=== PATIENT | male | born 1985 | race Caucasian/White ===

== ENCOUNTER 2025-04-24 17:05 | Emergency (ER) | payer OTHER ==
--- OUTSIDE RECORDS SUMMARY | 2025-04-24 17:10 | XMS REPORT | Continuity of Care Document ---
Author Name Unknown Address [address] [facility] [address] [place] [address] [facility] Address [address] [place] [address] Care Team Providers Care Personnel Generalist Manager Name Role Phone Michelle Hicks MD Primary Care Physici an Dunia Field Attending Clinician [phone] Dunia Field Attending Clinician [phone] Lab, Ang - Db Attending Clinician Unavailable DUNIA POTTS Attending Clinician Unavailable Michelle Hicks MD Attending Clinician MICHELLE HICKS Attending Clinician [place] vailable Doctor Unassigned, [place] Attending Clinician U navailable Payers Payer Name Policy Type Policy Number Effective Date Expirati on Date Source Problems Condition Name Condition Details Condition Category Status Onset Date Resolution Date Last Treatment Date Treating Clinician Comments Source Prediabete s Prediabete s Disease Active 01-01 00:00: 00 [facility] Allergies, Adverse Reactions, Alerts Allergy Name Allergy Type Status Severity Reaction(s) Onset Date Inactive Date Treating Clinician Comments Source NO KNOWN ALLERGIE S Drug Class Active [facility] Social History Social Habit Start Date Stop Date Quantity Comments Source [facility] intake 2024-01-02 00:00:00 2024-01-02 00:00:00 Ex-drinker (finding) [facility] Alcohol intake 2023-12-29 00:00:00 2023-12-29 00:00:00 Ex-drinker (finding) [facility] Tobacco use and exposure 2023-05-23 00:00:00 2023-05-23 00:00:00 Smokeless tobacco non-user [facility] History of Social function 2023-05-23 00:00:00 2023-05-23 00:00:00 [facility] Sex assigned at 1985 00:00:00 1985 00:00:00 [facility] Smoking Status Start Date Stop Date Source Tobacco smoking consumption unknown [facility] Never smoked tobacco [facility] Medications Ordered Medication Name Filled Medication Name Start Date Stop Date Current Medication? Ordering Clinician Indication Dosage Frequency Signature (SIG) Comments Components Source PARoxetine 20 mg tablet 2023-08 00:00: 00 Yes [id number] 20mg TAKE 1 TABLET BY MOUTH EVERY DAY IN THE MORNING [facility] PARoxetine (PAXIL) 20 mg tablet 8-20 00:00: 00 06-28 00:00 :00 No [id number] 20mg Take 1 tablet by mouth in the morning. [facility] PARoxetine (PAXIL) 20 mg tablet 5-03 00:00: 00 04-15 00:00 :00 No [id number] 20mg Take 1 tablet by mouth in the morning. [facility] PARoxetine (PAXIL) 20 mg tablet 3-20 00:00: 00 12-28 00:00 :00 No [id number] 20mg Take 1 tablet by mouth in the morning. [facility] PARoxetine (PAXIL) 20 mg tablet 2022-08 2-29 00:00: 00 11-14 00:00 :00 No [id number] 20mg Take 1 tablet by mouth in the morning. [facility] PARoxetine (PAXIL) 10 mg tablet - 08:24: 41 05-23 00:00 :00 No 10mg Take 1 tablet by mouth in the morning. [facility] PARoxetine (PAXIL) 10 mg tablet 9-26 00:00: 00 08-25 00:00 :00 No [id number] 10mg Take 1 tablet by mouth in the morning. [facility] Immunizations Ordered Immunization Name Filled Immunization Name Date Status Comments Source Influenza Virus Vaccine Quad IM, Preserv and ABX Free 6 MO-64 YRS (FLUCELVAX) 2023-05-23 00:00:00 Completed SARS-COV-2 COVID-19 PFIZER VACCINE 2021-01-01 00:00:00 Completed [facility] SARS-COV-2 COVID-19 PFIZER VACCINE 2020-12-11 00:00:00 Completed [facility] SARS-COV-2 COVID-19 PFIZER VACCINE Unknown Completed [facility] Influenza Virus Vaccine Quad IM, Preserv and ABX Free 6 MO-64 YRS (FLUCELVAX) Unknown Completed [facility] SARS-COV-2 COVID-19 PFIZER VACCINE Unknown Completed [facility] Influenza Virus Vaccine Quad IM, Preserv and ABX Free 6 MO-64 YRS (FLUCELVAX) Unknown Completed [facility] SARS-COV-2 COVID-19 PFIZER VACCINE Unknown Completed [facility] Influenza Virus Vaccine Quad IM, Preserv and ABX Free 6 MO-64 YRS (FLUCELVAX) Unknown Completed [facility] SARS-COV-2 COVID-19 PFIZER VACCINE Unknown Completed [facility] Influenza Virus Vaccine Quad IM, Preserv and ABX Free 6 MO-64 YRS (FLUCELVAX) Unknown Completed [facility] SARS-COV-2 COVID-19 PFIZER VACCINE Unknown Completed [facility] Influenza Virus Vaccine Quad IM, Preserv and ABX Free 6 MO-64 YRS (FLUCELVAX) Unknown Completed [facility] SARS-COV-2 COVID-19 PFIZER VACCINE Unknown Completed [facility] Influenza Virus Vaccine Quad IM, Preserv and ABX Free 6 MO-64 YRS (FLUCELVAX) Unknown Completed [facility] SARS-COV-2 COVID-19 PFIZER VACCINE Unknown Completed [facility] Influenza Virus Vaccine Quad IM, Preserv and ABX Free 6 MO-64 YRS (FLUCELVAX) Unknown Completed [facility] Vital Signs Vital Name Observation Time Observation Value Comments S ource Body height 2023-12-29 13:35:00 177.8 cm [facility] Body weight 2023-12-29 13:35:00 79.379 kg [facility] BMI 2023-12-29 13:35:00 25.11 kg/m2 [facility] Oxygen saturation in Arterial blood by Pulse oximetry 2023-12-29 13:35:00 96 /min [facility] Systolic blood pressure 2023-12-29 13:35:00 108 mm[Hg] [facility] Diastolic blood pressure 2023-12-29 13:35:00 64 mm[Hg] [facility] Heart rate 2023-12-29 13:35:00 59 /min [facility] Body temperature 2023-12-29 13:35:00 36.89 Jailyn [facility] Systolic blood pressure 2023-05-23 13:03:00 96 mm[Hg] [facility] Diastolic blood pressure 2023-05-23 13:03:00 63 mm[Hg] [facility] Heart rate 2023-05-23 13:03:00 59 /min [facility] Respiratory rate 2023-05-23 13:03:00 18 /min [facility] Body height 2023-05-23 13:03:00 177.8 cm [facility] Body weight 2023-05-23 13:03:00 85.004 kg [facility] BMI 2023-05-23 13:03:00 26.89 kg/m2 [facility] Oxygen saturation in Arterial blood by Pulse oximetry 2023-05-23 13:03:00 96 /min [facility] Procedures Procedure Date / Time Performed Performing Clinician Source VITAMIN B12, LEVEL 2023-12-29 14:06:00 Dunia Potts [facility] FOLATE 2023-12-29 14:06:00 Dunia Potts [facility] THYROID STIMULATING HORMONE 2023-12-29 14:06:00 Dunia Potts [facility] COMP. METABOLIC PANEL (63424) 2023-12-29 14:06:00 Dunia Potts [facility] LIPID PANEL (81061)(TOTAL CHOLESTEROL, TRIGLYCERIDES, HDL) 2023-12-29 14:06:00 Dunia Potts [facility] CBC WITH DIFF 2023-12-29 14:06:00 Dunia Potts [facility] GLYCOSYLATED HEMOGLOBIN (A1C) 2023-12-29 14:06:00 Dunia Potts [facility] VITAMIN D, 25-OH 2023-12-29 14:06:00 Dunia Potts [facility] VITAMIN B6, PLASMA 2023-12-29 14:06:00 Dunia Potts [facility] MAGNESIUM 2023-12-29 14:06:00 Dunia Potts [facility] FLU VACC (), 6 MO-64 YRS, .5ML, IM, QUAD (FLUCELVAX) 2023-05-23 13:55:35 Michelle Hicks [facility] CONSENT/REFUSAL FOR DIAGNOSIS AND TREATMENT 2023-05-23 12:58:33 Doctor Unassigned, [place] [facility] Encounters Start Date/Time End Date/Time Encounter Type Admission Type Attending Clinicians Care Facility Care Department Encounter ID Source 2024-06-23 00:00:00 2024-06-28 10:58:33 Refill Dunia Potts [facility] 1..840.114 350.1.13.10 4.2.7.2.686 [id number] [facility] 2024-04-15 00:00:00 2024-04-16 17:56:02 [facility]phone [facility] 1.2.840.114 350.1.13.10 4.2.7.2.686 [id number] [facility] 2024-01-02 00:00:00 2024-01-02 11:15:17 Telephone Dunia Potts [facility] 1.2.840.114 350.1.13.10 4.2.7.2.686 [id number] [facility] 2023-12-29 09:00:00 2023-12-29 13:40:51 Dye And Chemical Coordinator Visit Lab, Miguel Potts Dunia Bowen [facility] 1..840.114 350.1.13.10 4.2.7.2.686 [id number] [facility] 2023-12-29 08:30:00 2023-12-29 08:59:06 Outpatient R DUNIA POTTS [facility] [id number] [facility] 2023-12-29 08:30:00 2023-12-29 08:59:06 Office Visit Linda Dunia Bowen [facility] 1..840.114 350.1.13.10 4.2.7.2.686 [id number] [facility] 2023-11-22 08:30:00 2023-11-22 08:30:00 Outpatient R DUNIA POTTS [facility] [id number] [facility] 2023-11-15 00:00:00 2023-11-15 00:00:00 [facility] 1..840.114 350.1.13.10 4.2.7.2.686 [id number] [facility] 2023-08-18 00:00:00 2023-08-18 00:00:00 Telephone Michelle Hicks [facility] 1..840.114 350.1.13.10 4.2.7.2.686 [id number] [facility] 2023-05-23 08:00:00 2023-05-23 08:35:24 Office Visit [facility] Hicks [facility] 1..840.114 350.1.13.10 4.2.7.2.686 [id number] [facility] 2023-05-23 08:00:00 2023-05-23 08:35:24 Outpatient R MICHELLE HICKS [facility] [id number] [facility] 2023-05-23 00:00:00 2023-05-23 00:00:00 Orders Only Doctor Unassigned, [place] [facility] 1..840.114 350.1.13.10 4.2.7.2.686 [id number] [facility] Results Test Description Test Time Test Comments Results Result Co mments Source [facility]2023-12-29 21:51:15* Test Item Value Reference Range Interpretation Comme nts HGB A1C (test code = 4548-4) 5.7 % 4.0-5.7 SARIAH (test code = SARIAH) Reference RangesNormal: <5.7%Prediabetes: 5.7 - 6.4%Diabetes: > 6.5% Lab Interpretation (test code = 69212-8) Normal [facility], [id number] 21:39:53* Test Item Value Reference Range Interpretation Comme nts VIT B12 (test code = 3721343636) 603 pg/mL 240-930 SARIAH (test code = SARIAH) Biotin has been reported to cause a positive bias, interpret results relative to patient's use of biotin. Lab Interpretation (test code = 24180-1) Normal [facility]2024-[facility] 21:39:53* Test Item Value Reference Range Interpretation Comme nts FOLATE SER (test code = 3123247489) 3.9 ng/mL 3.0-20.0 Biotin has been reported to cause a positive bias, interpret results relative to patient's use of biotin. Lab Interpretation (test code = 64327-5) Normal [facility] (44487)(Total Cholesterol, Triglycerides, HDL)2023-12-29 21:37:54* Test Item Value Reference Range Interpretation Comme nts CHOL (test code = 2206641329) 118 mg/dL 120-200 L HDL (test code = 0995146907) 48 mg/dL >=40 HDLC RATIO (test code = 4215508398) 2.5 <=5.0 TRIG (test code = 1337615538) 76 mg/dL 30-170 LDL CHOL (test code = 85311-1) 55 mg/dL <=160 VLDL (test code = 5826448864) 15 mg/dL 5-60 Lab Interpretation (test cod e = 99312-3) Abnormal [facility] (77616)2023-12-29 21:37:33* Test Item Value Reference Range Interpretation Comme nts NA (test code = 9811124239) 141 mmol/L 135-145 K (test code = 8015652119) 5.1 mmol/L 3.5-5.0 H CL (test code = 4618596940) 102 mmol/L 98-108 CO2 TOTAL (test code = 2039612787) 34 mmol/L 23-31 H AGAP (test code = 9520228535) 5 2-16 BUN (test code = 5346596503) 9 mg/dL 7-23 GLUCOSE (test code = 6066982049) 64 mg/dL 70-110 L CREATININE (test code = 2160-0) 0.94 mg/dL 0.60-1.25 TOTAL BILI (test code = 5738926603) 1.2 mg/dL 0.1-1.1 H CALCIUM (test code = 1273577691) 9.4 mg/dL 8.6-10.6 T PROTEIN (test code = 3935570275) 6.8 g/dL 6.3-8.2 ALBUMIN (test code = 9499781841) 4.2 g/dL 3.5-5.0 ALK PHOS (test code = 5373351549) 54 U/L 34-122 ALTv (test code = 1742-6) 21 U/L 5-50 AST(SGOT) (test code = 4076922682) 31 U/L 13-40 eGFR (test code = 38740-8) 107.1 mL/min/1.73m2 CKD-EPI eGFR (2020). Assuming creatinine has been stable day-to-day for at least three months, the eGFR indicates Category G1 (>= 90 mL/min/1.73 m2) Lab Interpretation (test code = 36174-0) Abnormal [facility] Stimulating [id number] 21:16:50 * Test Item Value Reference Range Interpretation Comme nts TSH (test code = 2162586991) 1.07 0.45-4.70 Lab Interpretation (test cod e = 24792-9) Normal [facility], [id number] 21:02:11* Test Item Value Reference Range Interpretation Comme nts VIT D 25OH (test code = 70198-3) 40 ng/mL 25-80 SARIAH (test code = SARIAH) Deficiency: <20 ng/mLInsufficiency : 20-24 ng/mLOptimal: 25-80 ng/mL Lab Interpretation (test code = 13111-4) Normal [facility]esium2024-05-03 20:54:26* Test Item Value Reference Range Interpretation Comme nts MAGNESIUM (test code = 7512104121) 2.0 mg/dL 1.7-2.4 Lab Interpretation (test cod e = 02234-4) Normal [facility] with [id number] 20:04:13* Test Item Value Reference Range Interpretation Comme nts WBC (test code = 6690-2) 3.93 4.20-10.70 L RBC (test code = 789-8) 5.26 4.26-5.52 HGB (test code = 718-7) 14.9 g/dL 12.2-16.4 HCT (test code = 4544-3) 44.3 % 38.4-49.3 MCV (test code = 787-2) 84.2 fL 81.7-95.6 MCH (test code = 785-6) 28.3 pg 26.1-32.7 MCHC (test code = 786-4) 33.6 g/dL 31.2-35.0 RDW-SD (test code = 61765-9) 38.7 fL 38.5-51.6 RDW-CV (test code = 788-0) 12.8 % 12.1-15.4 PLT (test code = 777-3) 223 150-328 MPV (test code = 96358-5) 11.2 fL 9.8-13.0 NRBC/100 WBC (test code = 0933842602) 0.0 0.0-10.0 NRBC x10^3 (test code = 4341940723) See_Comment [Automated messa ge] The system which generated this result transmitted reference range: 10*3/?L. The reference range was not used to interpret this result as normal/abnormal. GRAN MAT (NEUT) % (test code = 770-8) 66.6 % IMM GRAN % (test code = 6339781707) 0.30 % LYMPH % (test code = 736-9) 19.6 % MONO % (test code = 5905-5) 8.4 % EOS % (test code = 713-8) 3.8 % BASO % (test code = 706-2) 1.3 % GRAN MAT x10^3(ANC) (test code = 5019319472) 2.62 10*3/uL 1.99-6.95 IMM GRAN x10^3 (test code = 8636681961) 0.00-0.06 LYMPH x10^3 (test code = 731-0) 0.77 10*3/uL 1.09-3.23 L MONO x10^3 (test code = 742-7) 0.33 10*3/uL 0.36-1.02 L EOS x10^3 (test code = 711-2) 0.15 10*3/uL 0.06-0.53 BASO x10^3 (test code = 704-7) 0.05 10*3/uL 0.01-0.09 Lab Interpretation (test code = 27474-0) Abnormal [facility] Notes Date/Time Note Provider Source 2024-06-24 14:18:30 Images from the original note were not included. Notes: 04/16/24 Last Refilled: [facility] [place] [place] [facility] [address] [facility] [address] Recent Visits Date Type Provider Dept 05/03/24 Office Visit Dunia Potts PA Ang-Db Cbc Fam Med Showing recent visits within past 540 days with a meds authorizing provider and meeting all other requirements Future Appointments No visits were found meeting these conditions. Showing future appointments within next 150 days with a meds authorizing provider and meeting all other requirements Name from pharmacy: PAROXETINE HCL 20 MG TABLET Will file in chart as: PAROXETINE 20 mg tablet Sig: TAKE 1 TABLET BY MOUTH EVERY DAY IN THE MORNING Disp: 30 tablet Refills: 0 (Pharmacy requested: Not specified) Start: 06/23/2024 Class: eRX For: Depression with anxiety Last ordered: 2 months ago (04/16/2024) by PATT Simon Last refill: 05/27/2024 Rx #: [id number] Psychiatry: Antidepressants Xkpiyg2806/23/2024 07:59 AM Protocol Details Manual Review: Verify no changes in dose in the last 3 months Valid encounter within last 12 months To be filled at: [facility]/pharmacy #[id number] [place], [place] - [address] AT [facility] Margie Forrest MA [facility] 2024-04-16 15:39:16 of pt calling in to check status on PARoxetine (PAXIL) 20 mg tablet. Relayed information from Doctor. [facility]/pharmacy #[id number] [place], [place] - [address] AT [place] [address] [facility] [id number] Ph. Please contact and advise. Dawood Oliveira [facility] 2024-04-16 09:45:34 I cannot send out of state, so patient will need to select a local pharmacy that he can transfer to an out of state location (ex: [facility]). Okay to send 30 days once patient decides. [facility] 2024-04-15 10:44:03 Please review and sign if appropriate: Last office visit: 12/29/23 Requested Prescriptions Pending Prescriptions Disp Refills PARoxetine (PAXIL) 20 mg tablet 90 tablet 3 Sig: Take 1 tablet by mouth in the morning. Last fill date: 12/29/23 Notes: Depression with anxiety - Primary T [facility] 2024-04-15 10:31:32 Pt traveling out of town, forgot meds at home, spouse requesting a temp refill be sent to his location PARoxetine (PAXIL) 20 mg tablet [facility]/pharmacy #[id number] Kike Vazquez [facility] 2023-12-29 09:00:00 Images from the original note were not included. Venipuncture collection performed by clean technique on the right anticubitus. Total of 1 attempts were made. Slight pressure and a bandage/dressing were applied to the site(s). The patient experienced no complications. The following specimens were processed according to instructions and sent to [facility] laboratories per lab order on 12/29/2023 : LT BLUE SST 3 1 LT GREEN RED LAV 2 PPT DK GREEN (LiHep) DK GREEN (SodH) HULL DK BLUE (K2) DK BLUE (S) ACD Blood Culture NIPT/NTD [facility] 2023-11-15 14:35:18 Please review and sign if appropriate: *[facility] Last office visit: 05/23/23 Next office visit: 11/22/23 Requested Prescriptions Pending Prescriptions Disp Refills PARoxetine (PAXIL) 20 mg tablet 30 tablet 3 Sig: Take 1 tablet by mouth in the morning. Last fill date: 08/25/23 Notes: Depression with anxiety Chronic Stable Restart paxil Fu in3 mo and prn T [facility] 2023-08-25 12:16:38 EC/Spouse-Claire notified that new RX was sent to pharmacy. All was verbalized understanding and no further needs voiced. [facility] 2023-08-25 12:03:23 Attempted to contact patient. No answer. Left message to call back. Olga Hogue LVN 08/25/2023 12:03 PM [facility] Olga Hogue [employer] [facility] 2023-08-25 10:49:01 I sent the 20 mg rx Michelle Hicks MD [facility] 2023-08-24 15:31:37 EC/spouse-Claire states prior to moving to [place] this patient was prescribed Paxil 20mg. During his office visit, he mistakenly stated that he was taking 10mg. Patient has been doubling up and is now running low on this med. Please review and advise. [facility] [place] - [place], [place] - [address] [place] [address] [address] [facility] 2023-08-23 14:51:47 LVM to callback Ynes Montenegro LVN 08/23/2023 [facility] 2023-08-23 12:23:26 The last RX I sent was in April for 10 mg- is he taking the 10 mg I prescribed or something else? Due for a follow up Please call for more info and update med rec. Thanks! Michelle Hicks MD [facility] 2023-08-18 09:59:12 Magalys Pedroza is a 38 year old male calling because at the last appointment he told dr he was taking 10 mg paxil but he actually takes 20 mg. So pt has been taking two. They were wondering if she could change it to the 20 mg. [facility] Jabier Gallo [facility]
[2025-04-24] MEDS ORDERED: KETOROLAC 30 MG/ML INJ ONE ×2 (18:03→19:56)
[2025-04-24] MEDS ORDERED: ONDANSETRON 4 MG/2 ML VIAL ONE (18:03)
[2025-04-24] MEDS ORDERED: MORPHINE 4 MG/ML SYR ONE ×2 (18:04→19:22)
[2025-04-24] MEDS ORDERED: FAMOTIDINE 20 MG/2 ML VIAL IV ONE (18:04)
[2025-04-24] MEDS ORDERED: NA CHLORIDE 0.9% 1,000 ML ONE (18:04)
[2025-04-24 18:09] LABS: Absolute Lymphocytes (CBC) 0.8 K/uL (0.7-4.9); Hematocrit 48.6 % (39.6-49.0); Hemoglobin 16.3 g/dL (13.6-17.9); MCH 27.5 pg (27.0-35.0); MCHC 33.5 g/dL (32.0-36.0); MCV 82.2 fL (80-100); MPV 9.6 fL (7.6-11.3); Nucleated RBC Absolute Count 0.0 (0-0); Nucleated Red Blood Cells % 0.0 % (0-0); RBC Red Blood Cell Count 5.91 M/uL (4.33-5.43); White Blood Count 7.90 thou/uL (4.3-10.9)
[2025-04-24 18:27] LABS: ALT/SGPT 26.0 U/L (16-61); AST/SGOT 20.0 U/L (15-37); Albumin 4.4 g/dL (3.4-5.0); Albumin/Globulin Ratio 1.3 (1.1-1.8); Alkaline Phosphatase 61.0 U/L (45-117); Anion Gap 8.9 mEq/L (5.0-15.0); BUN Blood Urea Nitrogen 7.0 mg/dL (7-18); Globulin 3.5 g/dL (2.3-3.5); Glucose Level 122.0 mg/dL (74-106); Lipase 62.0 U/L (13-75); Potassium 3.9 mEq/L (3.5-5.1)
--- NOTE | 2025-04-24 19:09 | RAD REPORT ---
EXAMINATION: US Abdomen Exam Limited CLINICAL HISTORY: [facility] upper abdomen pain Bed Name: 6 COMPARISON: None. TECHNIQUE: Limited upper abdominal grayscale and color flow sonographic images. FINDINGS: Gallbladder: Suboptimally distended limiting evaluation. No radiopaque calculi. Mild sludge near the neck. No wall thickening or pericholecystic fluid. Negative sonographic Galan sign. Bile ducts: No intrahepatic or extrahepatic biliary dilatation. Common bile duct measures 2 mm. Liver: Visualized portions of the liver demonstrate normal echogenicity with no suspicious findings. Fluid: No ascites. IMPRESSION: Mild dependent sludge. No other acute findings.
--- NOTE | 2025-04-24 19:10 | RAD REPORT ---
EXAMINATION: ONE VIEW CHEST XR CLINICAL INDICATION: Male, 40 years old.,upper abdomen pain TECHNIQUE: Frontal chest projection is submitted. Examination is limited by patient positioning and t echnique. COMPARISON: None available FINDINGS: The lungs are well inflated and clear. No pneumothorax or sizable effusion. The heart is normal in s ize. Mediastinal contours are unremarkable. IMPRESSION: No acute intrathoracic abnormalities.
--- NOTE | 2025-04-24 19:21 | RAD REPORT ---
EXAMINATION: CT Abdomen Pelvis W Contrast CLINICAL INDICATION: Male, 40 years old. upper abdomen pain TECHNIQUE: CT abdomen and pelvis was performed, after the administration of IV contrast, as per [facility] protocol. Axial, sagittal and coronal reconstructions were obtained. One or more of the following dose reduction techniques were used: Automated exposure control, adjustment of the mA and k V according to patient size, and iterative reconstruction. Unless otherwise specified, incidental findings do not require dedicated imaging follow-up. COMPARISON: No prior exam. FINDINGS: LOWER CHEST: The visualized lung bases are clear. LIVER: Normal in size and contour. No focal lesion. BILIARY SYSTEM: No suspicious abnormalities. SPLEEN: Normal size. No focal lesion. PANCREAS: No mass, ductal dilation, or mariela-pancreatic fluid. ADRENALS: Normal; no mass. KIDNEYS: Normal size and contour. No hydronephrosis. URINARY BLADDER: Unremarkable. GASTROINTESTINAL TRACT: No evidence of free air, significant intra-abdominal free fluid, bowel obstru ction or abscess. APPENDIX: Normal appendix. LYMPH NODES: No lymphadenopathy. MUSCULOSKELETAL: No acute or suspicious osseous abnormality. ADDITIONAL FINDINGS: None. IMPRESSION: No acute or concerning abnormalities seen in the abdomen or pelvis.
--- NOTE | 2025-04-24 20:59 | EDPHYS ---
Physician Documentation [facility] Name: Koby Underwood Age: 40 yrs Sex: Male : 1985 Arrival Date: 04/24/2025 Time: 17:05 Bed 6 Private MD: ED Physician Jesse Vuong HPI: 04/24 17:55 This 40 yrs old Male presents to ER via Ambulatory with complaints of Abdominal Pain - cp MID RT. 17:55 The patient presents with abdominal pain in the epigastric area, in the upper abdomen. cp Onset: The symptoms/episode began/occurred suddenly, today, about 1200 this afternoon. The symptoms radiate to back. Associated signs and symptoms: Pertinent positives: nausea, Pertinent negatives: chest pain, diarrhea, dysuria, testicular pain, vomiting. Severity of pain: in the emergency department the pain is unchanged despite home interventions. 17:55 The symptoms are described as sharp, pressure. cp 17:55 Modifying factors: The symptoms are alleviated by nothing, the symptoms are aggravated cp by nothing. Historical: - Allergies: 17:36 No Known Allergies; me1 - Home Meds: 17:36 None [Active]; me1 - PMHx: 17:36 None; me1 - PSHx: 17:36 None; me1 - Immunization history:: Adult Immunizations up to date. - Infectious Disease History:: Denies. - Social history:: Smoking status: Reported history of juuling and/or vaping. ROS: 18:00 Constitutional: Negative for body aches, chills, fever, poor PO intake, cp 18:00 Eyes: Negative for injury, pain, redness, and discharge, cp 18:00 ENT: Negative for drainage from ear(s), ear pain, sore throat, difficulty swallowing, difficulty handling secretions, 18:00 Cardiovascular: Negative for chest pain, edema, palpitations, 18:00 Respiratory: Negative for cough, shortness of breath, wheezing, 18:00 Abdomen/GI: Positive for abdominal pain, nausea, Negative for vomiting, diarrhea, constipation, 18:00 Back: Positive for radiated pain, 18:00 : Negative for urinary symptoms, testicular pain 18:00 Neuro: Negative for altered mental status, headache, weakness, 18:00 All other systems are negative, Exam: 18:05 Constitutional: The patient appears in no acute distress, alert, awake, cp non-diaphoretic, non-toxic, well developed, well nourished, uncomfortable, 18:05 Head/Face: Normocephalic, atraumatic. cp 18:05 Eyes: Periorbital structures: appear normal, Conjunctiva: normal, no exudate, no injection, Sclera: no appreciated abnormality, Lids and lashes: appear normal, bilaterally, 18:05 ENT: External ear(s): are unremarkable, Nose: is normal, Mouth: Lips: moist, Oral mucosa: moist, Posterior pharynx: Airway: no evidence of obstruction, patent, 18:05 Chest/axilla: Inspection: normal, 18:05 Cardiovascular: Rate: normal, Rhythm: regular, Edema: is not appreciated, JVD: is not appreciated, 18:05 Respiratory: the patient does not display signs of respiratory distress, Respirations: normal, no use of accessory muscles, no retractions, labored breathing, is not present, Breath sounds: are clear throughout, no decreased breath sounds, no stridor, no wheezing, 18:05 Abdomen/GI: Inspection: abdomen appears normal, Bowel sounds: active, all quadrants, Palpation: soft, in all quadrants, moderate abdominal tenderness, in the epigastric area and right upper quadrant, rebound tenderness, is not appreciated, involuntary guarding, is not appreciated, 18:05 Back: CVA tenderness, is absent, 18:05 Neuro: Orientation: to person, place \T\ time. Mentation: is normal, Motor: moves all fours, strength is normal, Sensation: is normal, Vital Signs: 17:33 BP 112 / 77; Pulse 65; Resp 16; Temp 99.2; Pulse Ox 98% ; Weight 77.11 kg; Height 5 ft. me1 10 in. ; Pain 5/10; 18:19 BP 120 / 93; Pulse 57; Resp 15; Pulse Ox 98% ; jl7 20:38 BP 109 / 70; Pulse 49; Resp 18; Temp 99.2; Pulse Ox 99% ; Pain 6/10; bm8 21:00 BP 117 / 82; Pulse 59; Resp 17; Temp 98.9; Pulse Ox 99% ; Pain 4/10; bm8 17:33 Body Mass Index 24.39 (77.11 kg, 177.8 cm) me1 17:33 Pain Scale: Adult me1 20:38 Pain Scale: Adult bm8 21:00 Pain Scale: Adult bm8 [place] Coma Score: 20:38 Eye Response: spontaneous(4). Motor Response: obeys commands(6). Verbal Response: bm8 oriented(5). Total: 15. 21:00 Eye Response: spontaneous(4). Motor Response: obeys commands(6). Verbal Response: bm8 oriented(5). Total: 15. MDM: 17:37 Medical Screening Exam initiated cherise 18:00 Differential diagnosis: cholecystitis, Cholelithiasis, pancreatitis, Peptic Ulcer cp Disease, Perf. Duodenal Ulcer, Perf. Gastric Ulcer, Pyelonephritis, Ureterolithiasis, urinary tract infection. 20:57 Data reviewed: vital signs, nurses notes, lab test result(s), radiologic studies, CT cp scan, ultrasound, and as a result, I will discharge patient. 20:58 I considered the following discharge prescriptions or medication management in the emergency department Medications were administered in the Emergency Department. See MAR. 20:58 Counseling: I had a detailed discussion with the patient and/or guardian regarding the cp historical points, exam findings, and any diagnostic results supporting the discharge/admit diagnosis, lab results, radiology results, the need for outpatient follow up, a general surgeon, to return to the emergency department if symptoms worsen or persist or if there are any questions or concerns that arise at home. Response to treatment: the patient's symptoms have mildly improved after treatment, and as a result, I will discharge patient. Special discussion: Based on the patient's Hx, exam, and Dx evaluation, there is no indication for emergent surgery or inpatient Tx. It is understood by the patient/guardian that if the Sx's persist or worsen they need to return immediately for re-evaluation. 04/24 17:49 Order name: CBC with Diff; Complete Time: 18:36 cp 04/24 17:49 Order name: CMP; Complete Time: 18:36 cp 04/24 17:49 Order name: Lipase; Complete Time: 18:36 cp 04/24 17:49 Order name: Abdomen Limited US: gallbladder; Complete Time: 19:25 cp 04/24 19:25 Interpretation: Report reviewed. cp 04/24 17:49 Order name: XRAY Chest (1 view); Complete Time: 19:25 cp 04/24 19:26 Interpretation: Report review. cp 04/24 18:37 Order name: CT Abd/Pelvis - IV Contrast Only; Complete Time: 19:25 cp 04/24 17:49 Order name: IV Saline Lock; Complete Time: 18:15 cp 04/24 17:49 Order name: Labs collected and sent; Complete Time: 18:15 cp 04/24 17:49 Order name: NPO; Complete Time: 18:15 cp 04/24 20:41 Order name: PO challenge; Complete Time: 20:50 cp Administered Medications: 18:02 Not Given (Physician Discretion): TORadol - [id number] mg IVP once cp 18:15 Drug: Famotidine IVP 20 mg IVP once; dilute with 10 mL 0.9% NaCl; give over 2 minutes jl7 Route: IVP; Site: right antecubital; 20:41 Follow up: Response: No adverse reaction bm8 18:15 Drug: morphine IVP or IV 4 mg IVP once over 4 mins Route: IVP; Infused Over: 4 mins; jl7 Site: right antecubital; 20:41 Follow up: Response: No adverse reaction bm8 18:16 Drug: Ondansetron IVP 4 mg IVP once; over 2 minutes Route: IVP; Site: right antecubital;jl7 20:41 Follow up: Response: No adverse reaction bm8 18:16 Drug: NS 0.9% IV 1000 ml IV at 1 bolus Per protocol; to be given as a bolus over 60 jl7 minutes Route: IV; Rate: 1 bolus; Site: right antecubital; 20:41 Follow up: Response: No adverse reaction; IV Status: Completed infusion bm8 20:06 Drug: morphine IVP or IV 4 mg IVP once over 4 mins Route: IVP; Infused Over: 4 mins; zm Site: right antecubital; 20:41 Follow up: Response: No adverse reaction bm8 20:06 Drug: Ketorolac IVP 15 mg IVP once Route: IVP; Site: right antecubital; zm 20:42 Follow up: Response: No adverse reaction bm8 Disposition Summary: 04/24/25 20:58 Discharge Ordered Notes: Location: Home cp Problem: new cp Symptoms: have improved cp Condition: Stable cp Diagnosis - Upper abdominal pain, unspecified cp Followup: cp - With: Domenic Cardenas MD - When: 1 - 2 days - Reason: Recheck today's complaints Discharge Instructions: - Discharge Summary Sheet cp - Abdominal Pain, Adult cp Forms: - Medication Reconciliation Form cp - Antibiotic Education cp - Prescription Opioid Use cp - Patient Portal Instructions cp - Leadership Thank You Letter cp Prescriptions: - Pepcid 20 mg Oral Tablet - take 1 tablet ORAL route every 12 hours for 10 days; 20 tablet; Refills: 0, cp Product Selection Permitted - Zofran 4 mg Oral Tablet - take 1 tablet ORAL route every 12 hours As needed; 20 tablet; Refills: 0, cp Product Selection Permitted - dicyclomine 20 mg Oral tablet - take 1 tablet ORAL route 4 times per day; 30 tablet; Refills: 0, Product cp Selection Permitted Addendum: 04/26/2025 12:40 Co-signature as Attending Physician, Jesse Vuong MD I agree with the assessment and c park plan of care. Signatures: Dispatcher [employer] Jesse Moreno MD MD cha Page, Corey, PA-C PA-C Valerie Godinez RN RN jl7 Linda Acuña RN RN zm Abigail Yi RN RN me1 Mark Gramajo RN bm8
--- NOTE | 2025-04-24 20:59 | ER ---
Nurse's Notes [facility] Name: Koby Underwood Age: 40 yrs Sex: Male : 1985 Arrival Date: 04/24/2025 Time: 17:05 Bed 6 Private MD: Diagnosis: Upper abdominal pain, unspecified Presentation: 04/24 17:33 Chief complaint: Patient states: mid abdominal pain that started suddenly today about me1 noon. Denies n/v/d/constipation. Reports bloating. Pain 5/10 "pressure with intermittent sharp pains". Denies fever. Coronavirus screen: At this time, the client does not indicate any symptoms associated with coronavirus-19. Ebola Screen: No symptoms or risks identified at this time. Initial Sepsis Screen: Does the patient meet any 2 criteria? No. Patient's initial sepsis screen is negative. Does the patient have a suspected source of infection? No. Patient's initial sepsis screen is negative. Risk Assessment: Do you want to hurt yourself or someone else? Patient reports no desire to harm self or others. Onset of symptoms was April 24, 2025 at 12:00. 17:33 Method Of Arrival: Ambulatory in1 17:33 Acuity: SUSANNE 3 me1 Historical: - Allergies: 17:36 No Known Allergies; me1 - Home Meds: 17:36 None [Active]; me1 - PMHx: 17:36 None; me1 - PSHx: 17:36 None; me1 - Immunization history:: Adult Immunizations up to date. - Infectious Disease History:: Denies. - Social history:: Smoking status: Reported history of juuling and/or vaping. Screenin:19 [facility] ED Fall Risk Assessment (Adult) History of falling in the last 3 months, jl7 including since admission No falls in past 3 months (0 pts) Confusion or Disorientation No (0 pts) Intoxicated or Sedated No (0 pts) Impaired Gait No (0 pts) Mobility Assist Device Used No (0 pt) Altered Elimination No (0 pt) Score/Fall Risk Level 0 - 2 = Low Risk Oriented to surroundings, Maintained a safe environment. Abuse screen: Denies threats or abuse. Denies injuries from another. Nutritional screening: No deficits noted. Tuberculosis screening: No symptoms or risk factors identified. Assessment: 18:21 General: Appears in no apparent distress. uncomfortable, Behavior is cooperative, jl7 anxious, restless. Pain: Complains of pain in right upper quadrant and left upper quadrant Pain radiates to mid back area Pain currently is 7 out of 10 on a pain scale. Quality of pain is described as pressure Pain began 1200. Neuro: [place] Agitation-Sedation Scale (RASS): +1 Restless Level of Consciousness is awake, alert, obeys commands, Oriented to person, place, time, situation. GI: Abdomen is non-distended, Bowel sounds present X 4 quads. Abd is soft Abdomen is tender to palpation in epigastric area, right upper quadrant and left upper quadrant. Derm: Skin is pink, warm \\T\\ dry. 20:38 Reassessment: Patient appears in no apparent distress at this time. Patient and/or bm8 family updated on plan of care and expected duration. Pain level reassessed. Patient is alert, oriented x 3, equal unlabored respirations, skin warm/dry/pink. Patient states feeling better. Patient states symptoms have improved. Pain: Complains of pain in right upper quadrant and left upper quadrant Pain currently is 6 out of 10 on a pain scale. Neuro: No deficits noted. Level of Consciousness is awake, alert, obeys commands, Oriented to person, place, time, situation, Appropriate for age. Cardiovascular: Denies chest pain. Respiratory: Airway is patent Respiratory effort is even, unlabored, Respiratory pattern is regular, symmetrical, Breath sounds are clear bilaterally. GI: Abdomen is flat, non-distended, Bowel sounds present X 4 quads. Abdomen is tender to palpation in right upper quadrant and left upper quadrant. 20:51 Reassessment: pt PO challenged with no adverse effects. bm8 21:00 Reassessment: Patient appears in no apparent distress at this time. Patient and/or bm8 family updated on plan of care and expected duration. Pain level reassessed. Patient is alert, oriented x 3, equal unlabored respirations, skin warm/dry/pink. Patient states feeling better. Patient states symptoms have improved. Vital Signs: 17:33 BP 112 / 77; Pulse 65; Resp 16; Temp 99.2; Pulse Ox 98% ; Weight 77.11 kg; Height 5 ft. me1 10 in. ; Pain 5/10; 18:19 BP 120 / 93; Pulse 57; Resp 15; Pulse Ox 98% ; jl7 20:38 BP 109 / 70; Pulse 49; Resp 18; Temp 99.2; Pulse Ox 99% ; Pain 6/10; bm8 21:00 BP 117 / 82; Pulse 59; Resp 17; Temp 98.9; Pulse Ox 99% ; Pain 4/10; bm8 17:33 Body Mass Index 24.39 (77.11 kg, 177.8 cm) me1 17:33 Pain Scale: Adult me1 20:38 Pain Scale: Adult bm8 21:00 Pain Scale: Adult bm8 [place] Coma Score: 20:38 Eye Response: spontaneous(4). Motor Response: obeys commands(6). Verbal Response: bm8 oriented(5). Total: 15. 21:00 Eye Response: spontaneous(4). Motor Response: obeys commands(6). Verbal Response: bm8 oriented(5). Total: 15. ED Course: 17:09 Patient arrived in ED. cj3 17:12 [facility]-C [facility]. cp 17:12 Jesse Vuong MD is Attending Physician. cp 17:36 Triage completed. me1 17:36 Arm band placed on Patient placed in an exam room. me1 17:38 Valerie Stringer, DEVIN is Primary Nurse. 7 18:00 Initial lab(s) drawn, by in, sent to lab. Inserted saline lock: 20 gauge in right jl7 antecubital area, using aseptic technique. Blood collected. Flushed with 10 mL NS. 18:13 XRAY Chest (1 view) In Process Unspecified. EDMS 18:19 Patient has correct armband on for positive identification. Bed in low position. [facility] Provided Education on: use of call bonilla. 18:29 Abdomen Limited US: gallbladder In Process Unspecified. EDMS 19:10 CT Abd/Pelvis - IV Contrast Only In Process Unspecified. EDMS 20:58 Domenic Cardenas MD is Referral Physician. cp 21:09 No provider procedures requiring assistance completed. IV discontinued, intact, zm bleeding controlled, No redness/swelling at site. Pressure dressing applied. Administered Medications: 18:02 Not Given (Physician Discretion): TORadol - [id number] mg IVP once cp 18:15 Drug: Famotidine IVP 20 mg IVP once; dilute with 10 mL 0.9% NaCl; give over 2 minutes jl7 Route: IVP; Site: right antecubital; 20:41 Follow up: Response: No adverse reaction bm8 18:15 Drug: morphine IVP or IV 4 mg IVP once over 4 mins Route: IVP; Infused Over: 4 mins; jl7 Site: right antecubital; 20:41 Follow up: Response: No adverse reaction bm8 18:16 Drug: Ondansetron IVP 4 mg IVP once; over 2 minutes Route: IVP; Site: right antecubital;jl7 20:41 Follow up: Response: No adverse reaction bm8 18:16 Drug: NS 0.9% IV 1000 ml IV at 1 bolus Per protocol; to be given as a bolus over 60 jl7 minutes Route: IV; Rate: 1 bolus; Site: right antecubital; 20:41 Follow up: Response: No adverse reaction; IV Status: Completed infusion bm8 20:06 Drug: morphine IVP or IV 4 mg IVP once over 4 mins Route: IVP; Infused Over: 4 mins; zm Site: right antecubital; 20:41 Follow up: Response: No adverse reaction bm8 20:06 Drug: Ketorolac IVP 15 mg IVP once Route: IVP; Site: right antecubital; zm 20:42 Follow up: Response: No adverse reaction bm8 Medication: 18:19 VIS not applicable for this client. jl7 Outcome: 20:58 Discharge ordered by . merry 21:09 Discharged to home ambulatory, with family, 21:09 Condition: stable 21:09 Discharge instructions given to patient, significant other, Instructed on discharge instructions, follow up and referral plans. no drinking with medication, no driving heavy equipment, medication usage, safety practices, Demonstrated understanding of instructions, follow-up care, medications, Prescriptions given X 3, 21:12 Patient left the ED. Signatures: Dispatcher [employer] EDJesse Matthews PA-C PA-C cp Leal, Jahala, RN RN jl7 Linda Acuña RN RN Abigail Yi RN RN me1 Mark Gramajo RN RN bm8 Deandra Maldonado 3
[2025-04-25 01:41] VITALS: O2SAT 99
[2025-04-25 01:43] VITALS: BP 117/82; TEMP 98.9
== END 2025-04-24 21:12 | disposition home or self-care (01) ==
LOC: ER 17:05
DX: R10.11 Right upper quadrant pain (principal)
CPT/HCPCS: 96361; 85025; 36415; 83690; 80053; 74177; 71045; 76705; 96375; 96374; 99284; Q9967; J2405; J7030